=== PATIENT | male | born 2000 | race Caucasian/White ===

== ENCOUNTER 2023-03-09 14:41 | Emergency (ER) | payer BC, SELFPAY ==
--- NOTE | 2023-03-09 14:52 | ED_ITS ---
HPI - Abdominal Pain General Chief Complaint: Abdominal Pain Stated Complaint: Abdominal Pain Time Seen by Provider: 03/09/23 14:57 Source: patient and RN notes reviewed Mode of arrival: ambulatory Limitations: no limitations History of Present Illness HPI narrative: 23-year-old male presents concern for one-week history of abdominal pain. He has history of Crohn's disease. He reports pain is been progressively worsening. He has had diarrhea and vomiting. He reports low-grade fever. MD elicited complaint: abdominal pain Related Data Home Medications Medication Instructions Recorded Confirmed cholecalciferol (vitamin D3) 125 125 mcg PO DAILY 03/09/23 03/09/23 mcg (5,000 unit) tablet (Vitamin D3) finasteride 5 mg tablet 5 mg PO DAILY 03/09/23 03/09/23 pantoprazole 40 mg tablet,delayed 40 mg PO QAM 03/09/23 03/09/23 release Allergies Allergy/AdvReac Type Severity Reaction Status Date / Time No Known Allergies Allergy Verified 03/09/23 15:02 Review of Systems Review of Systems: CONSTITUTIONAL: Reports malaise, low-grade fever. ENT: Denies rhinorrhea, congestion, sinus pain, otalgia or sore throat. CARDIOVASCULAR: Denies chest pain, palpitations, or edema. RESPIRATORY: Denies cough or dyspnea. GASTROINTESTINAL: Reports abdominal pain, nausea, vomiting, diarrhea GENITOURINARY: Denies dysuria or hematuria. MUSCULOSKELETAL: Denies myalgia. NEUROLOGIC: Denies headache. All systems reviewed & are unremarkable except as noted in HPI and below PMFSH Comments At time of signature, agree with nursing past medical, surgical, social and family history. There is no relevant family history pertinent to the presenting complaint Exam 2 Narrative: GENERAL: Nontoxic-appearing, and in no acute distress. HEAD: Normocephalic, atraumatic. EYES: PERRLA, conjunctivae clear, and EOMI. ENT: Nares clear. Mucous membranes moist. NECK: Supple. No lymphadenopathy CHEST: Speaks in full sentences. No respiratory distress. HEART: Regular rate and rhythm. ABDOMEN: Obese, tender in the right lower quadrant SKIN: Warm, dry, no rash. NEURO: Alert and oriented x3. PSYCH: Normal mood and affect Course Course Emergency Course: Patient is aware of, understands and agrees to be transferred to the emergency room. Patient agrees to proceed directly to the emergency department. Portions of this record may have been created with voice recognition software Level of Care: Express Care Visit Vital Signs Vital signs: Reviewed. Transfer Transfered to: [facility]) Transportation: Other (Private vehicle) Transfer rationale: Abdominal pain Accepting physician: Nola Rice MDM - Abdominal Pain MDM Narrative Medical decision making narrative: Exam findings warrant further evaluation emergency department; patient is non- toxic appearing and is in no distress. Critical Care Time Critical Care Time Critical Care Time: No Discharge Plan Discharge Clinical Impression: Abdominal pain Patient Disposition: Acute Care Hospital Condition: Stable Follow-up/Referrals: PHYSIC[facility] [Primary Care Provider] - Time of Disposition: 15:08
[2023-03-09 14:56] VITALS: BP 159/87; PULSE 79; RESP 16; TEMP 36.7; O2SAT 100
== END 2023-03-09 15:09 | disposition short-term general hospital (02) ==
PROVIDERS: Emergency Provider Nurse Practitioner
DX: R10.31 Right lower quadrant pain (principal); K50.90 Crohn's disease, unspecified, without complications; K21.9 Gastro-esophageal reflux disease without esophagitis
CPT/HCPCS: 99212; G0463

== ENCOUNTER 2023-07-06 13:31 | Emergency (ER) | payer BC, SELFPAY ==
[2023-07-06 13:38] VITALS: BP 152/76; PULSE 116; RESP 20; TEMP 37.1; O2SAT 100
--- NOTE | 2023-07-06 22:12 | ED.WOUNDLAC ---
HPI - Wound/Laceration General Chief Complaint: Wound/Laceration Stated Complaint: left hand pointer finger cut Time Seen by Provider: 07/06/23 13:52 Source: patient, RN notes reviewed and old records reviewed Mode of arrival: ambulatory Limitations: no limitations History of Present Illness HPI narrative: 23-year-old male to Express Care for laceration to left index finger that occurred just prior to arrival. Patient states while washing dishes he lacerated his finger on a primer powder blender wet blade. Patient reports that he is up-to-date on Tdap. Patient denies numbness, tingling, allergies. Patient reports he is right-hand dominant. Bleeding controlled upon arrival. Related Data Home Medications Medication Instructions Recorded Confirmed cholecalciferol (vitamin D3) 125 125 mcg PO DAILY 03/09/23 07/06/23 mcg (5,000 unit) tablet (Vitamin D3) dextroamphetamine-amphetamine 5 mg 5 mg PO DAILY 07/06/23 07/06/23 tablet (Adderall) hydrocortisone acetate 25 mg 25 mg RECTAL DAILY 07/06/23 07/06/23 rectal suppository (Anucort-HC) omeprazole 40 mg capsule,delayed 40 mg PO DAILY 07/06/23 07/06/23 release Allergies Allergy/AdvReac Type Severity Reaction Status Date / Time No Known Allergies Allergy Verified 07/06/23 13:57 Review of Systems Review of Systems: All systems reviewed & are unremarkable except as noted in HPI and below Constitutional: Constitutional: Reports no additional constitutional complaints Eyes: Eyes: Reports no additional eye complaints ENT: Reports system reviewed and no additional complaints, except as documented Cardiovascular: Cardiovascular: Reports no additional cardiovascular complaints, Denies chest pain and Denies dyspnea Respiratory: Respiratory: Reports no additional respiratory complaints, Denies cough and Denies dyspnea Musculoskeletal: Musculoskeletal: Reports no additional musculoskeletal complaints Integumentary/Breasts: Skin/Breast: Reports as per HPI and Reports wounds ( Left index finger) Neurologic: Reports system reviewed and no additional complaints, except as documented Psychiatric: Psychiatric: Reports no additional psychiatric complaints PMFSH Comments At the time of my signature, I reviewed and agree with the nursing past medical, surgical, social, and family history. There is no relevant family history pertinent to the patient complaint. Exam Const: General: cooperative, healthy appearing, comfortable, no acute distress, alert and well nourished Nutritional Appearance: well nourished Orientation/consciousness: patient oriented x3 Limitations: no limitations HENMT: Head: normal to inspection Ears: external ears normal Face/Nose/Sinus: Normal external nose present, Normal nares present, normal facial exam, No erythema and No edema Face and sinus: normal facial exam, no erythema and no edema Mouth: Yes Normal oral and palatal mucosa present Eyes: General: appearance normal, both eyes and all related structures Neck: Neck: normal visual inspection, full ROM and no meningeal signs Lymphatic: no lymphadenopathy noted and no lymphedema noted Chest: Chest palpation & inspection: normal inspection of the chest Resp: Effort & Inspection: normal respiratory effort and able to speak in complete sentences Auscultation: clear to auscultation bilaterally Cardio: Jugular venous distension: no JVD Rate: regular rate Rhythm: regular rhythm Back/Spine/Pelvis: Cervical Spine: cervical ROM normal Skin: General skin exam: normal color and wounds noted ( 1 cm laceration to distal palmar index finger) Neuro: General: patient oriented x3, gait normal, moves all extremities and no meningeal signs Speech: normal speech Gait exam (Neuro): Normal gait present Extrem: General: normal to inspection, full ROM and capillary refill normal Psych: Appearance: grossly normal and well kempt Course Course Emergency Course: Some parts of this dictation were generated by voice
== END 2023-07-06 14:15 | disposition home or self-care (01) ==
PROVIDERS: Emergency Provider Nurse Practitioner Family; PCP Physician Assistant
DX: S61.211A Laceration without foreign body of left index finger without damage to nail, initial encounter (principal); W26.9XXA Contact with unspecified sharp object(s), initial encounter; Y93.G1 Activity, food preparation and clean up; K50.90 Crohn's disease, unspecified, without complications; K21.9 Gastro-esophageal reflux disease without esophagitis; F90.9 Attention-deficit hyperactivity disorder, unspecified type
CPT/HCPCS: 12001; 99212; G0463

== ENCOUNTER 2023-08-02 10:05 | Emergency (ER) | payer BC, SELFPAY ==
[2023-08-02 10:12] VITALS: BP 119/68; PULSE 78; RESP 20; TEMP 36.6; O2SAT 98
--- NOTE | 2023-08-02 10:21 | ED.SKABFB ---
HPI - Skin/Abscess/Foreign Bdy General Chief complaint: Skin/Abscess/Foreign Body Stated complaint: Skin Problem Time Seen by Provider: 08/02/23 10:21 Source: patient, RN notes reviewed and old records reviewed Mode of arrival: ambulatory Limitations: no limitations History of Present Illness HPI narrative: 23 year old male presents to [facility] care with complaints of getting a tattoo of a beetle on his right inner proximal upper arm about 1 1/2 weeks ago and he noticed some small pustules the past 2 days on the tattoo that drained some purulent drainage. He states that the area of tattoo is warm, itchy, and is tender to palpation. Patient reports that he has been cleansing the tattoo with soap and water and applying triple antibiotic ointment and ice packs to area. Patient reports that he is going out of town next week and he wanted to have his arm checked. Patient reports that he has not had any fevers. Patient does have history of Crohn disease and is on infusions every 8 weeks at [facility] ROBERTS complaint: other (infection of tattoo, cellulitis) Onset (ago): day(s) (2) Location: RUE Severity scale (1-10): 3 Treatments prior to arrival: other (topical antibiotic ointment and cleanses with soap and water and ice ) Related Data Home Medications Medication Instructions Recorded Confirmed cholecalciferol (vitamin D3) 125 125 mcg PO DAILY 03/09/23 08/02/23 mcg (5,000 unit) tablet (Vitamin D3) omeprazole 40 mg capsule,delayed 40 mg PO DAILY 07/06/23 08/02/23 release cyclobenzaprine 10 mg tablet See Rx Instructions .Route .COMPLEX 08/02/23 08/02/23 finasteride 5 mg tablet 5 mg PO DAILY 08/02/23 08/02/23 vedolizumab 300 mg intravenous 300 mg IV ONCE 08/02/23 08/02/23 solution (Honey) Allergies Allergy/AdvReac Type Severity Reaction Status Date / Time No Known Allergies Allergy Verified 08/02/23 10:17 Review of Systems Review of Systems: CONSTITUTIONAL: Denies fever, chills, or sweats. CARDIOVASCULAR: Denies chest pain, palpitations, or edema. RESPIRATORY: Denies cough or dyspnea. GASTROINTESTINAL: Denies abdominal pain, nausea, vomiting SKIN: Reports redness and swelling, tenderness to tattoo on the left inner proximal lower arm of beetle which he had done 1 1/2 weeks ago. Reports purulent drainage,few vesicles in beetle tattoo., no fluctuation of tissue, some warmth of tattoo. MUSCULOSKELETAL: Denies myalgia. NEUROLOGIC: Denies headache, numbness All systems reviewed & are unremarkable except as noted in HPI and below PMFSH Past Medical History Medical History (Updated 08/02/23 @ 11:41 by Alicia Milan NP) ADHD (attention deficit hyperactivity disorder) Crohn's disease in remission GERD (gastroesophageal reflux disease) Social History Social History Smoking status: Never smoker Alcohol intake: current Alcohol use details: rare social alcohol Substance use type: does not use Living arrangements: alone Gender identity (if verbalized by the patient): Male Comments At time of signature, agree with nursing past medical, surgical, social and family history. There is no relevant family history pertinent to the presenting complaint Exam Narrative: GENERAL: Well-appearing, well-nourished, and in no acute distress. HEAD: Normocephalic, atraumatic. EYES: PERRLA and EOMI. ENT: Nares clear, no rhinorrhea or epistaxis. Mucous membranes moist. NECK: Supple. CHEST: Clear to auscultation. No respiratory distress. HEART: Regular rate and rhythm. No murmur heard. Normal peripheral pulses. ABDOMEN: Soft, nontender, nondistended, normal active bowel sounds. EXTREMITIES: Normal range of motion. No edema. SKIN: Warm, dry. Erythema, induration, tenderness, warmth, vesicle noted in tattoo with purulent drainage for 2 day history. No ecchymosis, crepitus noted. for tenerness to sin and tightness over tattoo area left upper inner forea
[2023-08-02 10:28] VITALS: BP 119/68; PULSE 78; RESP 20; TEMP 36.6; O2SAT 98
== END 2023-08-02 10:45 | disposition home or self-care (01) ==
PROVIDERS: Emergency Provider Registered Nurse; PCP Physician Assistant
DX: L03.113 Cellulitis of right upper limb (principal); K50.90 Crohn's disease, unspecified, without complications; K21.9 Gastro-esophageal reflux disease without esophagitis
CPT/HCPCS: 99213; G0463